=== PATIENT | female | born 1985 | race Caucasian/White ===

== ENCOUNTER 2023-04-30 14:43 | Outpatient (CLI) | payer OTHER ==
[2023-04-30] MEDS ORDERED: PRENATAL TABLE1 EAC1 PO (21:13)
== END 2023-04-30 16:33 | disposition home or self-care (01) ==
LOC: NST 14:43
PROVIDERS: ATTEND Obstetrics & Gynecology Maternal & Fetal Medicine
DX: Z34.83 Encounter for supervision of other normal pregnancy, third trimester (principal)

== ENCOUNTER 2023-04-30 17:46 | Inpatient (IN) | payer OTHER ==
[~2023-04-30] VITALS: Ht 170.2 cm; Wt 74.4 kg
[2023-04-30 19:57] LABS: HEMATOCRIT 33.7 % (36.0-45.00); MEAN CELL VOLUME 92.2 fL (80.00-100.00); MEAN CORPUSCULAR HEMOGLOBIN 30.2 pg (27.00-32.0); MEAN CORPUSCULAR HGB CONC 32.8 g/dl (32.0-36.0); PLATELET COUNT 288 K/uL (150-450); RED BLOOD COUNT 3.65 M/uL (4.00-6.00)
[2023-04-30 20:13] LABS: INR 1.02; PARTIAL THROMBOPLASTIN TIME 26.3 SECONDS (22.0-34.0); PROTHROMBIN TIME 10.7 SECONDS (9.0-11.5)
[2023-04-30 20:18] LABS: BILIRUBIN TOTAL 0.22 mg/dL (0.3-1.2); CALCIUM 9.1 mg/dL (8.5-10.1); CREATININE SERUM 0.62 mg/dL (0.55-1.02); GFR 108.91; GLOBULINA 3.8 G/DL (2.4-3.5); POTASSIUM 3.42 mEq/L (3.5-5.1); TOTAL PROTEIN 6.8 gm/dL (6.4-8.2)
[2023-04-30] MEDS ORDERED: PRENATAL TABLE1 EAC1 PO (21:13)
== END 2023-05-02 09:41 | disposition home or self-care (01) | DRG 833 ==
LOC: LDR 17:46
PROVIDERS: ADMIT Obstetrics & Gynecology Maternal & Fetal Medicine; ATTEND Obstetrics & Gynecology Maternal & Fetal Medicine
PROC: 4A1HXCZ Monitoring of Products of Conception, Cardiac Rate, External Approach (ICD-10-PCS; principal; 2023-04-30)
DX: O44.03 Complete placenta previa NOS or without hemorrhage, third trimester (principal); Z3A.31 31 weeks gestation of pregnancy; Z20.822 Contact with and (suspected) exposure to COVID-19

== ENCOUNTER 2023-06-02 22:14 | Inpatient (IN) | payer OTHER ==
[~2023-06-02] VITALS: Ht 170.2 cm; Wt 76.2 kg
[~2023-06-02 22:14] MED LIST: PRENATAL TABLE1 EAC1 PO
[2023-06-02 23:31] LABS: HEMATOCRIT 29.6 % (36.0-45.00); MEAN CORPUSCULAR HEMOGLOBIN 31.7 pg (27.00-32.0); MEAN CORPUSCULAR HGB CONC 35.3 g/dl (32.0-36.0); PLATELET COUNT 255 K/uL (150-450); RED BLOOD COUNT 3.28 M/uL (4.00-6.00); RED CELL DISTRIBUTION WIDTH 14.1 % (11.5-14.5)
[2023-06-02 23:38] LABS: ALBUMIN 2.8 gm/dL (3.4-5.0); BILIRUBIN TOTAL 0.13 mg/dL (0.3-1.2); CALCIUM 9.2 mg/dL (8.5-10.1); GFR 135.69; GLOBULINA 3.7 G/DL (2.4-3.5); POTASSIUM 3.93 mEq/L (3.5-5.1); TOTAL PROTEIN 6.5 gm/dL (6.4-8.2)
[2023-06-02 23:39] LABS: CREATININE SERUM 0.51 mg/dL (0.55-1.02)
[2023-06-02 23:49] LABS: HEMOGLOBIN 10.4 g/dL (12.0-15.00)
[2023-06-03 00:07] LABS: INR 0.95; PARTIAL THROMBOPLASTIN TIME 25.6 SECONDS (22.0-34.0)
[2023-06-03 08:27] LABS: BASE EXCESS -4.9 mmol/l
[2023-06-03 08:28] LABS: ABG PH 7.208 (7.35-7.45); ABG PO2 10.1 mmHg (80-100); ABG pCO2 62.4 mmHg (35-45); BICARBONATE 24.3 mmol/l (23-25); Tco2 26.3 mmol/l; o2 21 %
[2023-06-03 10:56] LABS: MEAN CELL VOLUME 90.1 fL (80.00-100.00); MEAN CORPUSCULAR HGB CONC 34.4 g/dl (32.0-36.0); PLATELET COUNT 229 K/uL (150-450); RED BLOOD COUNT 2.53 M/uL (4.00-6.00); RED CELL DISTRIBUTION WIDTH 14.1 % (11.5-14.5)
[2023-06-03 10:58] LABS: MEAN CORPUSCULAR HEMOGLOBIN 30.8 pg (27.00-32.0)
[2023-06-03 10:59] LABS: HEMATOCRIT 22.8 % (36.0-45.00); HEMOGLOBIN 7.8 g/dL (12.0-15.00)
[2023-06-04 08:06] LABS: HEMATOCRIT 28.2 % (36.0-45.00); MEAN CELL VOLUME 86.7 fL (80.00-100.00); MEAN CORPUSCULAR HGB CONC 34.5 g/dl (32.0-36.0); PLATELET COUNT 172 K/uL (150-450); RED BLOOD COUNT 3.25 M/uL (4.00-6.00)
[2023-06-04 08:07] LABS: MEAN CORPUSCULAR HEMOGLOBIN 29.8 pg (27.00-32.0)
[2023-06-04 08:08] LABS: HEMOGLOBIN 9.7 g/dL (12.0-15.00)
[2023-06-04 08:10] LABS: INR 0.98; PARTIAL THROMBOPLASTIN TIME 25.7 SECONDS (22.0-34.0); PROTHROMBIN TIME 10.3 SECONDS (9.0-11.5)
[2023-06-06 18:41] LABS: HEMOGLOBIN 9.6 g/dL (12.0-15.00); MEAN CELL VOLUME 87.7 fL (80.00-100.00); MEAN CORPUSCULAR HEMOGLOBIN 30.2 pg (27.00-32.0); MEAN CORPUSCULAR HGB CONC 34.5 g/dl (32.0-36.0); PLATELET COUNT 216 K/uL (150-450); RED BLOOD COUNT 3.19 M/uL (4.00-6.00); RED CELL DISTRIBUTION WIDTH 15.4 % (11.5-14.5)
== END 2023-06-07 12:23 | disposition home or self-care (01) | DRG 786 ==
LOC: LDR 22:14 → OB/GYN 06-03 08:24
PROVIDERS: Obstetrics & Gynecology; ADMIT Obstetrics & Gynecology Gynecology; ATTEND Obstetrics & Gynecology Gynecology
PROC: 4A1HXCZ Monitoring of Products of Conception, Cardiac Rate, External Approach (ICD-10-PCS; 2023-06-02)
PROC: BY4FZZZ Ultrasonography of Third Trimester, Single Fetus (ICD-10-PCS; 2023-06-02)
PROC: 30233N1 Transfusion of Nonautologous Red Blood Cells into Peripheral Vein, Percutaneous Approach (ICD-10-PCS; 2023-06-03)
PROC: 10D00Z1 Extraction of Products of Conception, Low, Open Approach (ICD-10-PCS; principal; 2023-06-03 05:15)
DX: O44.13 Complete placenta previa with hemorrhage, third trimester (principal); O60.14X0 Preterm labor third trimester with preterm delivery third trimester, not applicable or unspecified; D62 Acute posthemorrhagic anemia; O99.02 Anemia complicating childbirth; Z3A.36 36 weeks gestation of pregnancy; Z37.0 Single live birth; Z20.822 Contact with and (suspected) exposure to COVID-19